=== PATIENT | female | born 1930 | race African-American/Black ===

== ENCOUNTER 2016-09-10 16:19 | Outpatient (CLI) | payer MEDICARE ==
[2016-09-10 16:49] LABS: #Basophils 0.1 thou/uL (0.0-0.2); #Eosinphils 0.1 thou/uL (0.0-0.7); #Lymphocytes 3.1 thou/uL (1.20-3.40); #Monocytes 0.4 thou/uL (0.11-0.59); #Neutrophils 3.4 thou/uL (1.40-6.50); %Basophils 1.3 % (0.0-1.0); %Eosinophils 1.5 % (0.0-10.0); %Lymphocytes 43.7 % (21.0-51.0); %Monocytes 5.8 % (0.0-10.0); %Neutrophils 47.8 % (42.0-75.0); Mean Corpuscular HGB CONC 32.1 g/dL (32.0-36.0); Mean Corpuscular Hemoglobin 31.6 pg (27.0-31.0); Mean Corpuscular Volume 98.6 fl (81.0-99.0); Mean Platelet Volume 7.9 fL (7.4-10.4); Platelet Count 216 thou/uL (130-400); RBC Distribution Width 12.1 % (11.5-14.5)
[2016-09-10 17:09] LABS: ALT (SGPT) 13 U/L (8-55); AST (SGOT) 21 U/L (5-34); Albumin 4.3 g/dL (3.4-4.8); Alkaline Phosphatase 62 U/L (40-150); Anion Gap 18 mmol/L (10-20); BUN (Urea Nitrogen) 22 mg/dL (9.8-20.1); Bilirubin, Total 0.1 mg/dL (0.2-1.2); Calc. Creatinine Clearance 0 mL/min (70-130); Calcium 9.6 mg/dL (7.8-10.44); Carbon Dioxide 24 mmol/L (23-31); Chloride 104 mmol/L (98-107); Estimated GFR-MDRD 36; Globulin 3.9 g/dL (2.4-3.5); Glucose 75 mg/dL (83-110); Potassium 4.5 mmol/L (3.5-5.1); Protein, Total 8.2 g/dL (6.0-8.3); Sodium 141 mmol/L (136-145)
[2016-09-10 17:34] LABS: INR-International Normal Ratio 1.2; PTT 32.1 SEC (22.9-36.1); Prothrombin Time 15.7 SEC (12.0-14.7)
== END 2016-09-10 16:20 ==
LOC: HPCALD 16:19
PROVIDERS: ATTEND Family Medicine
DX: D68.9 Coagulation defect, unspecified (principal); I10 Essential (primary) hypertension
CPT/HCPCS: 36415; 80053; 84443; 85025; 85610; 85730

== ENCOUNTER 2016-10-05 13:18 | Outpatient (CLI) | payer MEDICARE ==
--- NOTE | 2016-10-05 19:46 | CT ---
CT OF THE BRAIN WITHOUT CONTRAST 10/05/16 A noncontrast study was performed with no prior films available for comparison. A scalp hematoma is seen in the right parietal region that measures about 5.3 x 1.3 cm. The underlying skull appears int act. Diffuse atrophy is present which is appropriate for age. There is minimal compensatory dilatati on of the ventricles in consideration of the atrophy present. There are no findings of acute stroke, mass, edema, or intracranial hemorrhage. At most, there may be some minor deep white matter ischemic changes. Overall, the findings are not t erribly impressive. There might be a little mucosal thickening in the right side of the sphenoid sin us, but this is equivocal. IMPRESSION: 1. No acute intracranial findings. 2. Right parietal scalp hematoma. POS: HOME
== END 2016-10-05 13:19 | disposition home or self-care (01) ==
LOC: BURCT 13:18
PROVIDERS: ATTEND Plastic Surgery
DX: C44.41 Basal cell carcinoma of skin of scalp and neck (principal); S00.03XA Contusion of scalp, initial encounter
CPT/HCPCS: 70450

== ENCOUNTER 2018-05-13 16:23 | Emergency (ER) | payer MEDICARE ==
[2018-05-13 17:15] LABS: Bilirubin Moderate (Negative); Blood, Urine Negative (Negative); Clarity Cloudy (Clear); Glucose, Urine (Dipstick) Negative (Negative); Leukocyte Negative (Negative); Nitrite Negative (Negative); Protein, Urine (Dipstick) 30 mg/dL (Neg-Trace); Specific Gravity, Urine 1.025 (1.005-1.030)
[2018-05-13 17:18] LABS: Bacteria/HPF 2+ HPF (None Seen); Crystals/HPF 2+ AMORPH URATES HPF (Negative); RBC/HPF 0-3 HPF (0-3); Squamous Epithelial 0-3 HPF (0-3); WBC/HPF 0-3 HPF (0-3)
[2018-05-13 17:23] LABS: Hemoglobin 12.9 g/dL (12.0-16.0); Mean Corpuscular HGB CONC 33.8 g/dL (32.0-36.0); Mean Platelet Volume 8.1 fL (7.4-10.4); Platelet Count 120 thou/uL (130-400); RBC Distribution Width 13.8 % (11.5-14.5); Red Blood Cell (RBC) Count 3.79 mill/uL (4.20-5.40); White Blood Cell (WBC) Count 8.5 thou/uL (4.8-10.8)
[2018-05-13 17:27] LABS: Band 1 % (5-11); Lymphocytes 25 % (21-51); MDiff Complete? YES; Monocytes 12 % (0-10); Neutrophil 62 % (42-75)
[2018-05-13 17:45] LABS: ALT (SGPT) 10 U/L (8-55); AST (SGOT) 30 U/L (5-34); Albumin 4.5 g/dL (3.4-4.8); Alkaline Phosphatase 74 U/L (40-150); Anion Gap 23 mmol/L (10-20); BUN (Urea Nitrogen) 85 mg/dL (9.8-20.1); CK (CPK) 54 U/L (29-168); Calc. Creatinine Clearance 0 mL/min (70-130); Calcium 10.6 mg/dL (7.8-10.44); Carbon Dioxide 23 mmol/L (23-31); Chloride 97 mmol/L (98-107); Estimated GFR-MDRD 14; Globulin 4.3 g/dL (2.4-3.5); Glucose 111 mg/dL (83-110); Lipase 11 U/L (8-78); Potassium 5.2 mmol/L (3.5-5.1); Protein, Total 8.8 g/dL (6.0-8.3); Sodium 138 mmol/L (136-145)
[2018-05-13] MEDS ORDERED: cefTRIAXone\\ROCEPHIN 1 GM VIAL ONE (18:21)
[2018-05-13] MEDS ORDERED: Aspirin Chewable 81 MG TAB ONE (18:21)
[2018-05-13] MEDS ORDERED: Sodium Chloride 0.9% 100 ML ONE (18:21)
[2018-05-13 18:26] LABS: CKMB 4.4 ng/mL (0-6.6)
--- NOTE | 2018-05-13 20:54 | RAD ---
AP VIEW CHEST: 05/13/18 HISTORY: Weakness. Elevated troponin level. Dehydration. AP view chest is obtained. Ectasia of the aorta seen. Mild cardiomegaly seen. There is a high riding right humeral head concerni ng for rotator cuff injury in the right shoulder. No evidence of acute intrathoracic abnormality seen. IMPRESSION: Ectasia of the aorta, otherwise unremarkable AP view chest. POS: [facility]
== END 2018-05-13 19:10 | disposition short-term general hospital (02) ==
LOC: BURERS 16:23
DX: I21.4 Non-ST elevation (NSTEMI) myocardial infarction (principal); E86.0 Dehydration; N39.0 Urinary tract infection, site not specified; I10 Essential (primary) hypertension; Z79.899 Other long term (current) drug therapy
CPT/HCPCS: 36415; 71045; 80053; 81003; 81015; 82550; 82553; 83690; 84484; 85025; 87040; 93005; 96361; 96365; A4353; J0696; J7050

== ENCOUNTER 2018-05-17 16:59 | Inpatient (IN) | payer MEDICARE ==
[2018-05-18] MEDS ORDERED: Ondansetron ODT 4 MG TAB PO PRN (07:58)
[2018-05-18] MEDS ORDERED: Nitroglycerin 0.4 MG TAB (25 Tab Bottle) SL PRN (07:58)
[2018-05-18] MEDS ORDERED: Calcium Carbonate 500 MG ChewTAB PO PRN (07:58)
[2018-05-18] MEDS ORDERED: Acetaminophen 325 MG TAB PO PRN (07:58)
[2018-05-18] MEDS: Amlodipine 5 MG TAB PO SCH (08:53)
[2018-05-18] MEDS: Multivit, Therapeutic 1 TAB PO SCH (08:53)
[2018-05-18] MEDS: Folic Acid 1 MG TAB PO SCH (08:53)
[2018-05-18] MEDS: Cyanocobalamin (Vitamin B-12) 1,000 MCG TAB PO SCH (08:53)
[2018-05-18] MEDS: PYRIDOXINE 50 MG PO SCH (10:55)
--- NOTE | 2018-05-18 13:51 | HP ---
CHIEF COMPLAINT: Need for skilled rehabilitation. HISTORY OF PRESENT ILLNESS: Ms. Schaefer is an 87-year-old female , who was admitted to [facility] on May 13, 2018, for complaint of generalized weakness and altered mental status. Her EKG initially showed some nonspecific ST and T-wave changes and there was concern for urinary infection. She was also found to be in acute renal failure with elevated creatinine of 3.78. She was started on empiric IV antibiotics and IV fluids. She was also found to have anion gap metabolic acidosis, metabolic encephalopathy, and thrombocytopenia. Her urine was cultured and essentially had no growth at 36 hours. Blood cultures were negative x2. For the acute renal failure, the patient underwent renal ultrasound, which showed bilateral severe hydronephrosis. For this reason, she had a CT scan of the abdomen and pelvis, which was concerning for right ovarian tumor and left adrenal mass as well as pelvic metastasis. Urology was contacted, seen by Dr. Gomez and in her opinion, it wouldn't be in the patient' s best interest to undergo any aggressive measures which would include stent placement. Palliative Care Team was involved with decision-making process and the family has decided not to pursue any aggressive treatment at this time. Upon presentation, she was also found to have elevated cardiac enzymes with troponin of 0.644. It was trended down to 0.441 and cardiology was consulted. Dr. Maki felt this is likely a demand ischemia. She was started on a beta-charis, but it had to be later tapered off if she develop some sinus pauses. She also underwent a 2D echocardiogram with LVEF at 50% to 55% and unremarkable otherwise. She is in a deconditioned state and family would like skilled physical and occupational therapy for an attempt at strengthening before she returns home. She was admitted last evening and currently has no complaints other than a diminished appetite. PAST MEDICAL HISTORY: 1. Hypertension. 2. Dementia. 3. CKD, stage 3. 4. Acute renal insufficiency, which is improving with last creatinine of 1.18. 5. 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 6. Demand ischemia, evaluated by Dr. Maki. 7. Acute metabolic encephalopathy, resolved. 8. Dehydration, resolved. 9. Metabolic acidosis, resolved. 10. Physical deconditioning. 11. Severe protein-calorie malnutrition. 12. 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 16. Rate controlled atrial fibrillation, new diagnosis, now in sinus rhythm. PAST SURGICAL HISTORY: Skin cancer resection with Dr. Tyler Calderon. ALLERGIES: NO KNOWN DRUG ALLERGIES. MEDICATIONS: 1. Vitamin B6 of 50 mg p.o. daily. 2. Ondansetron ODT 4 mg p.o. q.6 hours p.r.n. 3. Nitrostat 0.4 mg p.o. q.5 minutes sublingual p.r.n. chest pain. 4. Multivitamin one p.o. daily. 5. Folvite 1 mg p.o. daily. 6. Vitamin B12 of 1000 mcg p.o. daily. 7. Calcium carbonate 1000 mg p.o. q.4 hours p.r.n. 8. Norvasc 5 mg p.o. daily. 9. Acetaminophen 650 mg p.o. q.4 hours p.r.n. SOCIAL HISTORY: The patient currently lives at home with her daughter and son-in-law and 3 granddaughters. She has dementia and had a Neurology evaluation recently scheduled. She does not have a history of smoking, alcohol, or drug use. Her daughter Sofia is her primary decision maker. She remains a full code at this time. FAMILY HISTORY: Noncontributory to this case. REVIEW OF SYSTEMS: GENERAL: The patient has had no fevers throughout her admission, but has had weakness and fatigue. HEENT: Denies vision changes, sore throat, rhinorrhea, or ear pain. CARDIOVASCULAR: Denies chest pain. She had some sinus pauses and some atrial fibrillation that converted back to sinus rhythm during her recent hospitalization. She denied any chest pain. No orthopnea or PND. RESPIRATORY: Denies shortness of breath, hemoptysis, cough, or wheezing. GASTROINTESTINAL: Denies nausea, vomiting, diarrhea, constipation, or pain in the abdomen. GENITOURINARY: Denies dysuria, urinary frequency, urinary urgency, or gross hematuria. LYMPH: Denies edema. HEMATOLOGIC: Denies easy bleeding or bruising. PHYSICAL EXAMINATION: VITAL SIGNS: Temperature 98.1, respirations 16, pulse 61, 96% O2 sat on room air, and blood pressure 104/60. GENERAL: Cachectic female, in no acute distress. Alert as to self and situation, but not to time and does not recognize me, her primary care physician. HEENT: Normocephalic, atraumatic. The right eye with extensive cataract present, otherwise pupils are round and reactive. Nares are patent without discharge. Tongue protrudes in the midline. NECK: Supple without lymphadenopathy, thyromegaly, JVD, or bruit. HEART: Regular rate and rhythm. Normal S1 and S2. No murmurs, clicks, rubs, or gallops. LUNGS: Clear to auscultation with good air entry bilaterally. No crackles or wheezes. ABDOMEN: Positive bowel sounds in all 4 quadrants. Soft, nontender, and nondistended. No masses, guarding, or rebound tenderness. EXTREMITIES: No cyanosis, clubbing, or edema. NEUROLOGIC: Cranial nerves II through XII grossly intact. No focal deficits with generalized weakness. ASSESSMENT AND PLAN: 1. Severe physical deconditioning, which is multifactorial due to protein- calorie malnutrition, dehydration, recent acute kidney injury, and hydronephrosis due to malignant obstruction, likely metastatic cancerous process. The patient has been admitted for longterm and Physical and Occupational Therapy. We will get a dietary consult. Our ultimate goal is to have the patient able to achieve her ADLs in a timely and efficient and safe manner before returning home with possibly home health. She does not appear to need hospice care at this time, but the family is open to that when the point comes. 2. Acute renal insufficiency. This is improving. We will check another metabolic profile in approximately 1 week along with a CBC. 3. Advanced dementia. They have neurological consult pending for further workup , but I have asked that they put that off at this time. I do not feel that this is time to start anti-dementia medicines as it might alter her already suppressed appetite. We can consider this at a later date. 4. Severe protein-calorie malnutrition. Again, we will get a dietary consult. We are going to continue her nutritional supplements. Might consider adding mirtazapine at bedtime since we do have her on fall precautions and can watch her during skilled care, if she does not have her appetite picked up in the next 24 to 48 hours. I do not want to start Megace secondary to her malignant processes and the right ovarian vein thrombosis. This medication can increase her risk for thrombosis. 5. Ovarian tumor/adrenal mass/pelvic bone metastasis. The family has elected no aggressive workup in this lady with advanced age, dementia, and poor nutritional status. 6. Hypertension. We will continue her amlodipine. 7. Prophylaxis. We will place the patient on H2 charis and SCDs. 8. Code status. The patient is currently a full code. Job ID: [id number] [id number]
[2018-05-19] MEDS: Amlodipine 5 MG TAB PO SCH (10:04)
[2018-05-19] MEDS: Cyanocobalamin (Vitamin B-12) 1,000 MCG TAB PO SCH (10:05)
[2018-05-19] MEDS: Folic Acid 1 MG TAB PO SCH (10:05)
[2018-05-19] MEDS: Multivit, Therapeutic 1 TAB PO SCH (10:05)
[2018-05-19] MEDS: PYRIDOXINE 50 MG PO SCH (10:05)
[2018-05-19] MEDS: Mirtazapine 15 MG TAB PO SCH (20:30)
[2018-05-20] MEDS: Amlodipine 5 MG TAB PO SCH (21:17)
[2018-05-20] MEDS: Cyanocobalamin (Vitamin B-12) 1,000 MCG TAB PO SCH (21:20)
[2018-05-20] MEDS: Folic Acid 1 MG TAB PO SCH (21:20)
[2018-05-20] MEDS: Multivit, Therapeutic 1 TAB PO SCH (21:21)
[2018-05-20] MEDS: Mirtazapine 15 MG TAB PO SCH (21:41)
[2018-05-21] MEDS: Amlodipine 5 MG TAB PO SCH (09:36)
[2018-05-21] MEDS: Cyanocobalamin (Vitamin B-12) 1,000 MCG TAB PO SCH (09:38)
[2018-05-21] MEDS: Multivit, Therapeutic 1 TAB PO SCH (09:39)
[2018-05-21] MEDS: Folic Acid 1 MG TAB PO SCH (09:39)
[2018-05-21] MEDS: Mirtazapine 15 MG TAB PO SCH (21:54)
[2018-05-22 05:27] LABS: Anion Gap 17 mmol/L (10-20); BUN (Urea Nitrogen) 28 mg/dL (9.8-20.1); Calc. Creatinine Clearance 18 mL/min (70-130); Calcium 9.4 mg/dL (7.8-10.44); Carbon Dioxide 24 mmol/L (23-31); Chloride 103 mmol/L (98-107); Estimated GFR-MDRD 42; Glucose 80 mg/dL (83-110); Potassium 3.4 mmol/L (3.5-5.1); Sodium 141 mmol/L (136-145)
[2018-05-22 05:33] LABS: #Basophils 0.1 thou/uL (0.0-0.2); #Eosinphils 0.2 thou/uL (0.0-0.7); #Lymphocytes 2.1 thou/uL (1.20-3.40); #Monocytes 0.7 thou/uL (0.11-0.59); #Neutrophils 4.6 thou/uL (1.40-6.50); %Basophils 1.1 % (0.0-1.0); %Eosinophils 2.4 % (0.0-10.0); %Monocytes 8.9 % (0.0-10.0); %Neutrophils 60.6 % (42.0-75.0); Hemoglobin 10.9 g/dL (12.0-16.0); Hypochromia SLIGHT = 6-15 cells (100X) (0-5/hpf); MDiff Complete? YES; Macrocytosis SLIGHT = 6-15 cells (100X) (0-5/hpf); Mean Corpuscular HGB CONC 32.5 g/dL (32.0-36.0); Mean Corpuscular Hemoglobin 33.7 pg (27.0-31.0); Ovalocytes SLIGHT = 2-5 cells (100X) (0-1/hpf); Platelet Count 118 thou/uL (130-400); Platelet Morphology Comment Appears Decreased; Red Blood Cell (RBC) Count 3.24 mill/uL (4.20-5.40); White Blood Cell (WBC) Count 7.6 thou/uL (4.8-10.8)
[2018-05-22] MEDS: Multivit, Therapeutic 1 TAB PO SCH (09:36)
[2018-05-22] MEDS: Amlodipine 5 MG TAB PO SCH (09:37)
[2018-05-22] MEDS: Cyanocobalamin (Vitamin B-12) 1,000 MCG TAB PO SCH (09:37)
[2018-05-22] MEDS: Folic Acid 1 MG TAB PO SCH (09:37)
[2018-05-22] MEDS ORDERED: Potassium Chloride 20 MEQ TAB PO SCH (13:15)
[2018-05-23] MEDS: Folic Acid 1 MG TAB PO SCH (10:51)
[2018-05-23] MEDS: Multivit, Therapeutic 1 TAB PO SCH (10:51)
[2018-05-23] MEDS: Cyanocobalamin (Vitamin B-12) 1,000 MCG TAB PO SCH (10:51)
[2018-05-23] MEDS: Amlodipine 5 MG TAB PO SCH (11:08)
[2018-05-24] MEDS: Cyanocobalamin (Vitamin B-12) 1,000 MCG TAB PO SCH (09:29)
[2018-05-24] MEDS: Amlodipine 5 MG TAB PO SCH (09:29)
[2018-05-24] MEDS: Multivit, Therapeutic 1 TAB PO SCH (09:37)
[2018-05-24] MEDS: Folic Acid 1 MG TAB PO SCH (09:37)
[2018-05-25] MEDS: Amlodipine 5 MG TAB PO SCH (09:29)
[2018-05-25] MEDS: Cyanocobalamin (Vitamin B-12) 1,000 MCG TAB PO SCH (09:29)
[2018-05-25] MEDS: Folic Acid 1 MG TAB PO SCH (09:29)
[2018-05-25] MEDS: Multivit, Therapeutic 1 TAB PO SCH (09:29)
[2018-05-26 05:42] LABS: Anion Gap 17 mmol/L (10-20); BUN (Urea Nitrogen) 40 mg/dL (9.8-20.1); Calc. Creatinine Clearance 13 mL/min (70-130); Calcium 10.5 mg/dL (7.8-10.44); Carbon Dioxide 27 mmol/L (23-31); Chloride 104 mmol/L (98-107); Estimated GFR-MDRD 32; Glucose 101 mg/dL (83-110); Potassium 4.9 mmol/L (3.5-5.1); Sodium 143 mmol/L (136-145)
[2018-05-26] MEDS: Cyanocobalamin (Vitamin B-12) 1,000 MCG TAB PO SCH (11:13)
[2018-05-26] MEDS: Amlodipine 5 MG TAB PO SCH (11:13)
[2018-05-26] MEDS: Multivit, Therapeutic 1 TAB PO SCH (11:13)
[2018-05-26] MEDS: Folic Acid 1 MG TAB PO SCH (11:13)
[2018-05-26] MEDS: Megestrol Acetate 400 MG/10 ML UDCUP PO SCH (11:15)
[2018-05-27] MEDS: Amlodipine 5 MG TAB PO SCH (09:36)
[2018-05-27] MEDS: Cyanocobalamin (Vitamin B-12) 1,000 MCG TAB PO SCH (09:36)
[2018-05-27] MEDS: Folic Acid 1 MG TAB PO SCH (09:36)
[2018-05-27] MEDS: Multivit, Therapeutic 1 TAB PO SCH (09:37)
[2018-05-27] MEDS: Megestrol Acetate 400 MG/10 ML UDCUP PO SCH (09:37)
[2018-05-28] MEDS: Multivit, Therapeutic 1 TAB PO SCH (10:19)
[2018-05-28] MEDS: Folic Acid 1 MG TAB PO SCH (10:19)
[2018-05-28] MEDS: Amlodipine 5 MG TAB PO SCH (10:19)
[2018-05-28] MEDS: Cyanocobalamin (Vitamin B-12) 1,000 MCG TAB PO SCH (10:19)
[2018-05-28] MEDS: Megestrol Acetate 400 MG/10 ML UDCUP PO SCH (10:20)
[2018-05-29] MEDS: Multivit, Therapeutic 1 TAB PO SCH (10:33)
[2018-05-29] MEDS: Cyanocobalamin (Vitamin B-12) 1,000 MCG TAB PO SCH (10:33)
[2018-05-29] MEDS: Megestrol Acetate 400 MG/10 ML UDCUP PO SCH (10:34)
[2018-05-29] MEDS: Folic Acid 1 MG TAB PO SCH (10:34)
[2018-05-29] MEDS: Amlodipine 5 MG TAB PO SCH (10:34)
[2018-05-29 14:51] VITALS: BMI 15.6
[2018-05-30] MEDS: Cyanocobalamin (Vitamin B-12) 1,000 MCG TAB PO SCH (12:29)
[2018-05-30] MEDS: Multivit, Therapeutic 1 TAB PO SCH (12:29)
[2018-05-30] MEDS: Amlodipine 5 MG TAB PO SCH (12:29)
[2018-05-30] MEDS: Folic Acid 1 MG TAB PO SCH (12:30)
[2018-05-30] MEDS: Megestrol Acetate 400 MG/10 ML UDCUP PO SCH (12:30)
[2018-05-31] MEDS: Folic Acid 1 MG TAB PO SCH (10:39)
[2018-05-31] MEDS: Cyanocobalamin (Vitamin B-12) 1,000 MCG TAB PO SCH (10:40)
[2018-05-31] MEDS: Megestrol Acetate 400 MG/10 ML UDCUP PO SCH (10:40)
[2018-05-31] MEDS: Multivit, Therapeutic 1 TAB PO SCH (10:40)
[2018-05-31] MEDS: Amlodipine 5 MG TAB PO SCH (10:40)
[2018-06-01] MEDS: Megestrol Acetate 400 MG/10 ML UDCUP PO SCH (09:27)
[2018-06-01] MEDS: Cyanocobalamin (Vitamin B-12) 1,000 MCG TAB PO SCH (09:29)
[2018-06-01] MEDS: Multivit, Therapeutic 1 TAB PO SCH (09:29)
[2018-06-01] MEDS: Folic Acid 1 MG TAB PO SCH (09:29)
[2018-06-01] MEDS: Amlodipine 5 MG TAB PO SCH (09:31)
[2018-06-02] MEDS ORDERED: Megestrol Acetate 400 MG/10 ML UDCUP PO SCH (09:00)
[2018-06-02] MEDS: Multivit, Therapeutic 1 TAB PO SCH (11:13)
[2018-06-02] MEDS: Amlodipine 5 MG TAB PO SCH (11:13)
[2018-06-02] MEDS: Cyanocobalamin (Vitamin B-12) 1,000 MCG TAB PO SCH (11:16)
[2018-06-02] MEDS: Folic Acid 1 MG TAB PO SCH (11:16)
[2018-06-02 18:34] VITALS: BP 109/63; TEMP 97.9
== END 2018-06-02 18:25 | disposition home or self-care (01) | DRG 754 ==
LOC: BURMED 20:54
PROVIDERS: ADMIT Family Medicine; ATTEND Family Medicine
DX: C56.1 Malignant neoplasm of right ovary (principal); E43 Unspecified severe protein-calorie malnutrition; N13.30 Unspecified hydronephrosis; C79.51 Secondary malignant neoplasm of bone; Z68.1 Body mass index [BMI] 19.9 or less, adult; E27.8 Other specified disorders of adrenal gland; F03.90 Unspecified dementia, unspecified severity, without behavioral disturbance, psychotic disturbance, mood disturbance, and anxiety; E86.0 Dehydration; R53.81 Other malaise; N18.3 Chronic kidney disease, stage 3 (moderate); I12.9 Hypertensive chronic kidney disease with stage 1 through stage 4 chronic kidney disease, or unspecified chronic kidney disease; Z98.890 Other specified postprocedural states
CPT/HCPCS: 36415; 80048; 85025; Q0162